=== PATIENT | female | born 1960 | race Caucasian/White ===

== ENCOUNTER 2016-05-30 17:24 | Day surgery (SDC) | payer BC ==
[2016-05-30] MEDS ORDERED: RINGERS SOLUTION,LACTATED 1,000 ML IV PRN (18:00)
[2016-05-30] MEDS ORDERED: ceFAZolin SODIUM 2 GM in DEXTROSE 5 % IN WATER 50 ML IV PRN ×2 (18:00)
[2016-05-30] MEDS ORDERED: RINGERS SOLUTION,LACTATED 1,000 ML IV ONE (18:01)
[2016-05-30] MEDS ORDERED: ceFAZolin SODIUM 1 GM VIAL IV ONE ×2 (19:03→20:20)
[2016-05-30] MEDS ORDERED: BUPIVACAINE HCL/EPINEPHRINE 50 ML VIAL IJ ONE ×2 (20:30)
[2016-05-30] MEDS ORDERED: oxyCODONE HCL/ACETAMINOPHEN 1 TAB TABLET ONE (22:27)
[2016-05-30 22:42] VITALS: BP 140/50
[2016-05-30] MEDS ORDERED: oxyCODONE HCL/ACETAMINOPHEN 1 TAB TABLET PO ONE (22:45)
--- NOTE | 2016-05-31 09:03 | OR ---
Operative Report - Dictated Report Narrative: OPERATIVE REPORT DATE OF OPERATION: 05/30/2016 PREOPERATIVE DIAGNOSIS: Left breast abscess POSTOPERATIVE DIAGNOSIS: 3 x 4 cm left breast abscess OPERATION: Incision and drainage of left breast abscess. Left breast biopsies (skin and breast tissue) SURGEON: Zoey Roe MD ANESTHESIA: Gen. LMA Kai Mishra CRNA INDICATIONS FOR PROCEDURE: The patient is a 55-year-old female referred by Dr Servin. The patient developed a mass in the left breast about 4 weeks ago. 2 weeks ago the area became red and tender. She has never had a previous mammogram. FINDINGS: 3 x 4 cm abscess cavity (C&S and biopsies pending) NARRATIVE OF PROCEDURE: The patient was identified preoperatively, and the surgical site specifically identified. Prior to the administration of anesthetic a multidisciplinary timeout was observed. The patient was placed supine, SCDs were applied, and intravenous Ancef administered. Gen. LMA anesthetic was administered. The patient's left breast was prepped with Betadine solution and isolated with 4 sterile towels. The remainder the patient was covered with a sterile disposable drape. A 2.5 cm incision was made over the most fluctuant area entering into a large abscess cavity. A large amount of yellow purulent material was expressed. Sample was submitted for culture. The cavity was then explored and found to be a simple cavity with no extension. A portion of skin was excised and submitted for pathology and additional piece of deeper tissue was submitted as well. The cavity was then irrigated with a liter of saline and inspected for hemostasis which appeared complete. The cavity was then packed with 2 inch iodoform gauze and a dressing of Mepilex border and Medipore tape applied. 0.5% Marcaine with epinephrine was used for local anesthetic infiltration. There was no measurable blood loss. All counts were correct. The operative procedure was terminated at this point. The patient tolerated the anesthetic and procedure well without complication. She was transferred to the recovery room awake, extubated, and in stable condition. Reviewed and electronically signed
== END 2016-05-30 17:25 | disposition home or self-care (01) ==
LOC: SUR 17:24
PROVIDERS: ATTEND Surgery
PROC: 0HBU0ZX Excision of Left Breast, Open Approach, Diagnostic (ICD-10-PCS; 2016-05-30)
PROC: 0H9UXZZ (ICD-10-PCS; principal; 2016-05-30 20:00)
DX: N61.1 Abscess of the breast and nipple (principal); F17.200 Nicotine dependence, unspecified, uncomplicated; Z68.33 Body mass index [BMI] 33.0-33.9, adult